=== PATIENT | male | born 1950 | race Two or more races ===

== ENCOUNTER 2022-04-30 13:01 | Emergency (ER) | payer OTHER ==
[2022-04-30 14:34] VITALS: BP 169/75
== END 2022-04-30 15:59 | disposition home or self-care (01) ==
LOC: ER 13:01 → EDBD 13:01 → ER 15:57
DX: I83.892 Varicose veins of left lower extremity with other complications (principal); I10 Essential (primary) hypertension; I48.91 Unspecified atrial fibrillation; E78.5 Hyperlipidemia, unspecified
CPT/HCPCS: 12001; 99283; J2001

== ENCOUNTER 2023-09-21 19:10 | Emergency (ER) | payer OTHER ==
[~2023-09-21] VITALS: Ht 180.3 cm; Wt 84.1 kg
[2023-09-21] MEDS: IPRATROPIUM BROM 0.5 MG/2.5ML INH SOL NEB ONE (20:25)
[2023-09-21] MEDS: ALBUTEROL SULF 2.5 MG/0.5ML(0.5%) NEB SOLN NEB ONE (20:25)
[2023-09-21 20:34] LABS: Basophils # (auto) 0 10 ^3/uL (0-0.2); Basophils % (auto) 0.5 % (0.0-2.0); Eosinophils # (auto) 0.2 10 ^3/uL (0-0.8); Eosinophils % (auto) 1.9 % (0.0-7.0); Hematocrit 47.6 % (41.0-53.0); Hemoglobin 15.9 g/dL (13.5-17.5); Lymphocytes # (auto) 1.3 10 ^3/uL (0.4-5.4); Lymphocytes % (auto) 12.9 % (10.0-50.0); Mean Corpuscular Hemoglobin 32.6 pg (28.0-32.0); Mean Corpuscular Hgb Conc. 33.4 g/dL (32.0-36.0); Mean Corpuscular Volume 97.7 fL (80.0-100.0); Monocytes # (auto) 0.9 10 ^3/uL (0-1.3); Monocytes % (auto) 9.4 % (0.0-12.0); Neutrophils # (auto) 7.4 10 ^3/uL (1.6-8.6); Neutrophils % (auto) 75.3 % (37.0-80.0); Nucleated Red Blood Cells % 0.2 %; Red Blood Cells 4.88 10^6/uL (4.5-5.90); Red Cell Distribution Width 13.8 % (11.8-14.3); White Blood Cell 9.9 10^3/uL (4.4-10.8)
[2023-09-21 21:01] LABS: Chloride 96 mmol/L (98-107); Potassium 4.7 mmol/L (3.5-5.1); Sodium 130 mmol/L (136-145)
[2023-09-21 21:02] LABS: Anion Gap 4 (5-15); Carbon Dioxide 30 mmol/L (20-30)
[2023-09-21 21:07] LABS: BUN/Creatinine Ratio 6.6 (10.0-20.0); Blood Urea Nitrogen 5 mg/dL (9-23); Glucose 110 mg/dL (74-106)
[2023-09-21] MEDS ORDERED: PROM1SOL4 PO (22:47)
[2023-09-21] MEDS ORDERED: ALBU1.258 IN (22:47)
[2023-09-21] MEDS ORDERED: AZITTAB PO (22:47)
[2023-09-22 00:19] VITALS: BP 151/90; PULSE 112; TEMP 98.7
[2023-09-22 00:22] VITALS: RESP 22; O2SAT 86
[2023-09-22] MEDS: cefTRIAXone SOD 1,000 MG VL IM ONE (00:30)
[2023-09-22] MEDS: LIDOCAINE 1% HCL (LOCAL ANESTH.) INJ 20ML MDV ONE (00:33)
== END 2023-09-22 01:02 | disposition left against medical advice (07) ==
LOC: ER 19:10
DX: J40 Bronchitis, not specified as acute or chronic (principal); I10 Essential (primary) hypertension; I48.91 Unspecified atrial fibrillation; E78.5 Hyperlipidemia, unspecified
CPT/HCPCS: 36415; 71046; 80048; 84484; 85025; 93005; 94640; 96372; 99285; J0696; J2001; J7644